=== PATIENT | male | born 1990 | race Caucasian/White ===

== ENCOUNTER 2016-10-05 02:11 | Inpatient (IN) | payer BC ==
[~2016-10-05] VITALS: Ht 182.9 cm; Wt 122.6 kg
--- NOTE | ~2016-10-05 | ECH ---
Transthoracic Echocardiography Report (TTE) Demographics Patient Name ANNAMARIE CRENSHAW Date of Study 10/10/2016 Patient Number [id number] Visit Number [id number] Date of 1990 Room Number 411 Accession Number [id number] Gender Male Age 26 year(s) Referring Rosi Chen MD Decaler Felicia Lind [facility] Physician Physician Herminio Galloway MD Commercial Lawn Specialist Physician Klever Supervising Ordering Physician Rosi Chen MD, MD/MLP Nurse Stress Horticulture Worker Conclusions Contractility Score Summary Normal Left Ventricular contractility was noted. Summary Technically difficult exam to perform due to recent left shoulder surgery. Apical images limited. The estimated left ventricular ejection fraction is 60-65%. Mild concentric left ventricular hypertrophy. No significant valvular abnormalities. Right ventricle was not well visualized. It appears mildly enlarged but systolic function could not be visualized. Recommendation The patient will be given the results of this study by the physician who ordered the exam. Procedure Type of Study TTE procedure:Echo Complete SF. Procedure Date Date: 10/10/2016 Start: 03:56 PM Technical Quality: Adequate visualization Indications:Dyspnea with exertion and Pulmonary embolus. Appropriate Use Criteria: 9 Height: 72 inches Weight: 275 pounds BSA: 2.44 m Rhythm: Within normal limits HR: 69 bpm BP: 144/60 mmHg M-Mode/2D Measurements LV Diastolic Dimension: 4.08 cm LV Systolic Dimension: 2.27 cm LV Septum Diastolic: 1.09 cm LV PW Diastolic: 1.06 cm AO Root Dimension: 2.41 cm Cardiac Output: 5.62 l/min LA Dimension: 3.56 cm Cardiac Index: 2.3 l/min*m RV Diastolic Dimension: 3.29 cm LA volume index: 14 ml/m LVOT: 1.99 cm LVOT VTI: 26.18 cm LV Stroke volume: 81.39 ml LV Stroke volume index: 33.36 ml/m Doppler Measurements AV Mean Gradient: 3.49 mmHg MV Peak E-Wave: 0.84 m/s LVOT Peak Velocity: 1.22 m/s MV Peak A-Wave: 0.45 m/s AV Area (Continuity):3.35 cm MV P1/2t: 47.5 msec TR Velocity:1.17 m/s TR Gradient:5.51 mmHg MV Deceleration Time: 169.9 msec Estimated RAP:5 mmHg MV Area (PHT): 4.63 cm Estimated RVSP: 11 mmHg PV Peak Velocity: 1.12 m/s PV Peak Gradient: 5.06 mmHg Estimated PASP: 10.51 mmHg Findings Left Ventricle The left ventricle is normal in size . Mild concentric left ventricular hypertrophy. Diastolic assessment reveals normal relaxation. Right Ventricle Right ventricle not well visualized. Left Atrium Normal left atrial size. Right Atrium Right atrium not well visualized. Mitral Valve Normal mitral valve structure and function. Aortic Valve Normal aortic valve structure and function. Tricuspid Valve Normal tricuspid valve structure and function. Trivial tricuspid regurgitation by color Doppler. Pulmonic Valve Normal pulmonic valve structure and function. Pericardial Effusion No evidence of pericardial effusion. Miscellaneous Visualized portions of the aortic root and ascending aorta appear normal in size. Pleural Effusion No evidence of pleural effusion. Contractility Score LV regional wall motion:(0-Non visualized 1-Normal 2-Hypokinesis 3-Akinesis 4-Dyskinesis 5-Aneurysm) Signature
[2016-10-12] MEDS ORDERED: OXY IR DPS5 MG PO (10:25)
[2016-10-12] MEDS ORDERED: PEPCID DPS20 MG PO (10:25)
[2016-10-12] MEDS ORDERED: MAALOX DPS30 ML PO (10:26)
[2016-10-12] MEDS ORDERED: XARELTO15 MG PO (10:26)
[2016-10-12] MEDS ORDERED: CIPRO DPS500 MG PO (10:26)
[2016-10-12] MEDS ORDERED: MILK OF MAGNESI10 ML PO (10:27)
[2016-10-12] MEDS ORDERED: SURFAK DPS240 MG PO (10:27)
[2016-10-12] MEDS ORDERED: TYLENOL DPS325 MG PO (10:27)
[2016-10-12] MEDS ORDERED: MIRALAX PACKET17 GM PO (10:27)
--- NOTE | 2016-10-13 15:02 | CO ---
ADMIT: 10/05/2016 RM/LOC: 411 [facility] MR#: [id number] 26[address] [facility] [address] [place], [place] [address] ANNAMARIE CRENSHAW [address] [place] [address] Consultation SEX: M AGE: 26 : 1990 DATE OF CONSULTATION: 10/10/2016 ATTENDING PHYSICIAN: Dimitry Aranda CONSULTING PHYSICIAN: Yessy Whalen MD REASON FOR CONSULT: Fever. Thank you, Dr. Aranda, for the consult and involving me in this patient's care. 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 He recently underwent a left labrum repair by Dr. Flor in [place] on September 28, 2016. Subsequently 1 week after that, he noticed severe pain in his left upper extremity and went to [place] ER and was noted to have deep vein thrombosis. He was started on Xarelto and discharged from the ER. He presented to [facility] and was noted to have right lower lobar and segmental pulmonary embolus. He was started on heparin drip. Since admission, he has been running fevers. T-max was 101.9 on admission. He was started on Zosyn and blood cultures have been negative so far. Left shoulder MRI was also done without contrast, which only showed small amount of fluid in the subacromial and subdeltoid bursa. At present, he complains of mild back pain on deep breathing and left shoulder discomfort. He had a fever of 101.9 and then was started on Zosyn. PAST MEDICAL HISTORY: Obesity. SOCIAL HISTORY: Denies any smoking or recreational drug use. He drinks alcohol 2-3 times a week. He lives at home with his . FAMILY HISTORY: Significant for stroke in his grandmother. REVIEW OF SYSTEMS: A 10-point review of systems negative except as mentioned in the HPI. PHYSICAL EXAMINATION: VITAL SIGNS: Current temperature 99, T-max 101.9 on admission, heart rate 70, respirations 14, blood pressure 127/65, and 93% on 2 L. GENERAL: No acute distress. HEENT. Head normocephalic and atraumatic. Extraocular movements intact. CHEST: Decreased breath sounds bilaterally. CARDIOVASCULAR: S1 and S2 heard. Regular rate and rhythm. ABDOMEN: Soft, nontender, and nondistended. Active bowel sounds. MUSCULOSKELETAL: The left shoulder Steri-strips are intact. Mild tenderness to palpation. No obvious erythema or swelling noted. PSYCH: Normal affect. Memory intact. ADMIT: 10/05/2016 RM/LOC: 411 [facility] MR#: [id number] [address] [address] ANNAMARIE CRENSHAW [address] [place] [address] Consultation SEX: M AGE: 26 : 1990 EXTREMITIES: No peripheral edema. DATA REVIEW: Per HPI. CBC shows white count of 6.3, hemoglobin 12.4, and platelets of 226. CMP shows creatinine of 1 and mildly elevated ALT of 83. ESR was elevated to 76. ASSESSMENT AND PLAN: 1. Fever, likely secondary to clot burden versus drug fever. There are no localizing signs of infection at this time. I will stop the Zosyn and change to ciprofloxacin 400 mg twice daily in case he has fever secondary to beta lactams. He is clinically stable. If he continues to have fever, then we will repeat MRI of the left shoulder with contrast and CT of abdomen and pelvis as well. He also had atelectasis on the right lower lobe and recommend doing incentive spirometry every 1 hour while awake. 2. Status post left shoulder tendon repair on September 28, 2016. 3. Left arm deep venous thrombosis. 4. Pulmonary embolus, on heparin drip. He was started on Xarelto again. Thank you for the consult. I will continue to follow the patient. Yessy Whalen MD/ justin JOB #: [id number] CC: Dimitry Aranda, Attending Physician Dimitry Aranda, Family Physician
--- NOTE | 2016-10-14 07:29 | ER ---
ADMIT: 10/05/2016 RM/LOC: ER [facility] MR#: [id number] 26[address] [facility] [address] [place], [place] [address] ANNAMARIE CRENSHAW [address] [place] [address] Emergency Room Report SEX: M AGE: 26 : 1990 DATE: 10/05/2016 CHIEF COMPLAINT: Concern of possible PE. HISTORY OF PRESENT ILLNESS: The patient is a 26-year-old male, who had surgery on his left shoulder a week ago. The surgery was done in [place] by Dr. Flor. The patient states that he has had pain associated with surgery, but had increasing pain in the last 24 hours in the left arm and shoulder. He presented to an outside facility to the emergency department, where he was worked up, possible DVT, and they found a DVT in his left upper extremity. Decision was made to put him on Xarelto and he was discharged home on Xarelto. Since being discharged and taking his first dose of Xarelto, he states he has had increasing symptoms of some pain, primarily in his left scapular region, some pain with inspiration and increasing shortness of breath. He still has the persistent pain in his left shoulder and left upper extremity. REVIEW OF SYSTEMS: Ten-point review of systems is done, otherwise negative except as in HPI. PAST MEDICAL HISTORY: Unremarkable. MEDICATIONS: See nurse's note. ALLERGIES: NONE. SOCIAL HISTORY: Denies smoking, drug, or alcohol use. PHYSICAL EXAMINATION: VITAL SIGNS: Blood pressure is 102/78, pulse 98, respirations 26, temp 99.7, sats 100% on room air. GENERAL: The patient does appear uncomfortable and is anxious. He is alert, airway is patent. NECK: Supple. HEART: Regular rate and rhythm. LUNGS: Clear to auscultation. EXTREMITIES: Right upper extremity is unremarkable. Left upper extremity shows he is in a sling. He has some operative sites noted on his left shoulder, which appear that they are healing well. No signs of infection. He has good radial pulse and sensation and motor are grossly intact in the left upper extremity. ABDOMEN: Soft. Lower extremities show he has no pedal edema. No calf tenderness. LABORATORY DATA: CBC was unremarkable. BMP was unremarkable. ABG on room air showed a pH 7.4, pCO2 of 33.6, PO2 of 63. CT angio of the chest was done, which was a suboptimal contrast study, which shows: 1. No evidence of acute intrathoracic disease. 2. There is some mild bibasilar dependent atelectasis. 3. Suboptimal contrast opacification of the pulmonary arteries. Unable to ADMIT: 10/05/2016 RM/LOC: ER [facility] MR#: [id number] [address] [address] ANNAMARIE CRENSHAW [address] [place] [address] Emergency Room Report SEX: M AGE: 26 : 1990 evaluate for pulmonary emboli. EMERGENCY DEPARTMENT COURSE: When the patient presented, he was quite anxious. We went ahead and got an IV started and we ordered some Dilaudid and Ativan for his pain and anxiety. His symptoms were improved with regard to his pain. The workup for possible PE was inconclusive due to the timing of the dye on his CT angio. Clinically, I am still concerned of pulmonary embolism. His ABG was low on room air. When we got the patient up to walk, his sats dropped to 90 and he was symptomatic and dyspneic. At this point, we will be admitting the patient for possibility of PE and we will be starting on heparin. I spoke to Dr. Jones, who is on this evening for the patient's primary care physician. DIAGNOSES: 1. Chest pain. 2. Deep vein thrombosis, left upper extremity. 3. Dyspnea. 4. Postoperative pain. 5. Possible pulmonary embolism. Sergio Anders MD/ justin JOB #: [id number] CC: Sergio Anders MD, Attending Physician Dimitry Aranda DO, Family Physician
--- NOTE | 2016-10-18 08:23 | HP ---
ADMIT: 10/05/2016 RM/LOC: 411 [facility] MR#: [id number] 26[address] [facility] [address] [place] [id number] ANNAMARIE CRENSHAW [address] [place] [address] History and Physical SEX: M AGE: 26 : 1990 DATE OF SERVICE: 10/05/2016 REASON FOR HOSPITALIZATION: DVT and high index suspicion for PE. 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 Flor in [place] with subsequent finding of a DVT after he presented to the [place] [facility] with left upper extremity pain and sharp, stabbing discomfort in the arm. He was started on Xarelto and released. He then developed dyspnea and right posterior mid-chest stabbing pain with low oximetry levels. He came to the emergency room and underwent CTA, which was equivocal and non-diagnostic. We have subsequently admitted him for treatment of DVT with high index suspicion pulmonary embolism. Since his admission, he has been spiking some low-grade temperatures. He continues to complain of the right-sided chest discomfort. He is taking no medicines other than IV heparin at this time, but had been started on Xarelto 15 mg b.i.d. and was on pain management of Advil, Nucynta, and oxycodone after his surgery. SOCIAL HISTORY: He does not smoke. He is . FAMILY HISTORY: Negative for DVT or pulmonary embolism. REVIEW OF SYSTEMS: Essentially as outlined above. He denies any nausea, vomiting, diarrhea, constipation, or bleeding. PHYSICAL EXAMINATION: On exam, he has a low-grade temp, his temperature current is 101.2. His shoulders do not show any signs of infection. His incisions are healing nicely, no drainage. He has a few rhonchi, especially in right posterior mid-lung field. His left upper extremity has good pulses and is warm. LABORATORY DATA: His creatinine is 1.1, white count 9.6. IMAGING: CTA nondiagnostic, no major central vascular occlusions. ADMIT: 10/05/2016 RM/LOC: 411 [facility] MR#: [id number] 26[address] [facility] [address] [place] [id number] ANNAMARIE CRENSHAW [address] [place], [place] [address] History and Physical SEX: M AGE: 26 : 1990 IMPRESSION: 1. Deep vein thrombosis with high index suspicion for pulmonary embolism. 2. Fever, possibly related to clot and/or atelectasis. I do not see any signs of wound or surgical infection, and he is not having any urinary symptoms. PLAN: We are going to admit him, heparinize him over the next 48 hours. Hold his Xarelto. Plan to repeat a CTA in 48 hours, and I suspect we will see some changes by that time, if possible more peripheral pulmonary infarct. For the temperatures, we will culture and cover with antibiotic therapy. We will provide him pain relief and monitoring on telemetry. Dimitry Aranda DO/ justin JOB #: [id number] CC: Dimitry Aranda, Attending Physician Dimitry Aranda, Family Physician
--- NOTE | 2016-11-08 08:20 | DS ---
ADMIT: 10/05/2016 RM/LOC: 411 [facility] MR#: [id number] [address] [facility] [address] [place] [phone] ANNAMARIE CRENSHAW [address] [place] [address] Discharge Summary SEX: M AGE: 26 : 1990 ADMISSION DATE: 10/05/2016 DISCHARGE DATE: 10/11/2016 REASON FOR HOSPITALIZATION: DVT with high index suspicion for pulmonary embolism. HISTORY OF PRESENT ILLNESS: A 26-year-old male patient, recently underwent left labrum shoulder repair by Dr. Flor. He was subsequently found to have a DVT in his left upper extremity in [facility] where he was treated and placed on Xarelto and released. He had subsequently developed shortness of breath and right posterior mid chest pain, stabbing in nature. He then presented to the [facility] where CTA was performed and initially nonconclusive, but presumably underlying pulmonary infarct/pulmonary embolism. At the time of presentation, he was febrile and we started him on IV heparin, put him at bed rest, underwent blood culture, started him on broad- spectrum antibiotic therapy consisting of Zosyn. He was also started on a Dilaudid ENTOMOLOGY PROFESSOR for pain management. We spent a great deal of time educating the patient and family about the nature of pulmonary embolism and DVT as well as a long-term management. We did have him undergo a followup MRI of his left shoulder and within 48 hours, we approved of him being up and about being off a telemetry to shower and because of the narcotic analgesics, he was constipated, so I recommended he start on Movantik 25 mg p.o. daily. CAT scan did show pulmonary embolism. This is found in the right lower lobe consistent with his pain and discomfort. His blood cultures were negative. Factor V Leiden was performed. We felt that his DVT and pulmonary embolism were provoked by recent upper extremity immobilization and clot found in the upper extremity. He was otherwise at relatively low risk once stabilized with his pulmonary embolism. We opted to put him on Xarelto 15 mg p.o. b.i.d. for 21 days and then transitioned him to 20 mg p.o. daily thereafter. Because he had ongoing fever, we did ask Dr. Whalen to see and performed an echocardiogram. We transitioned him from ENTOMOLOGY PROFESSOR pain management to oral pain management. Dr. Whalen felt that his fever was likely secondary to clot burden and atelectasis. She found no localizing signs of infection and recommended incentive spirometry and discontinuation of IV Zosyn and institution of IV ciprofloxacin. On 10/11/2016, he was having some abdominal discomfort, so we had him undergo an ultrasound of the abdomen. This showed no evidence of acute cholecystitis and he was appropriate for dismissal home. He was to return to ADMIT: 10/05/2016 RM/LOC: 411 [facility] MR#: [id number] [address] [address] ANNAMARIE CRENSHAW [address] [place] [address] Discharge Summary SEX: M AGE: 26 : 1990 see me in 2 weeks. He was to continue Cipro 500 mg p.o. b.i.d. through October 13, 2016 and have repeat liver enzymes performed one week after dismissal at our office. Ultimately, Dr. Whalen concluded that his fevers were probably medication induced and also his elevated liver enzymes were suspicious that they were medication and antibiotic induced. FINAL DIAGNOSES: 1. Deep venous thrombosis. 2. Pulmonary embolism. 3. Medication/antibiotic-induced fever. 4. Constipation. 5. Elevated liver enzymes secondary to medication management. Dimitry Aranda DO/ modl JOB #: [id number] CC: Dimitry Aranda DO, Attending Physician Dimitry Aranda DO, Family Physician
== END 2016-10-11 11:20 | disposition home or self-care (01) | DRG 176 ==
LOC: ER 02:11 → 4PCU 04:40
PROVIDERS: ADMIT Internal Medicine
DX: I26.99 Other pulmonary embolism without acute cor pulmonale (principal); I82.622 Acute embolism and thrombosis of deep veins of left upper extremity; J98.11 Atelectasis; F41.9 Anxiety disorder, unspecified; R50.9 Fever, unspecified; Z98.890 Other specified postprocedural states; E66.9 Obesity, unspecified; K59.00 Constipation, unspecified; R79.89 Other specified abnormal findings of blood chemistry; T50.905A Adverse effect of unspecified drugs, medicaments and biological substances, initial encounter; Z68.37 Body mass index [BMI] 37.0-37.9, adult

== ENCOUNTER → 2016-10-12 | Outpatient (CLI) | payer BC ==
[~2016-10-12] MED LIST: CIPRO DPS500 MG PO; MAALOX DPS30 ML PO; MILK OF MAGNESI10 ML PO; MIRALAX PACKET17 GM PO; OXY IR DPS5 MG PO; PEPCID DPS20 MG PO; SURFAK DPS240 MG PO; TYLENOL DPS325 MG PO; XARELTO15 MG PO
== END | disposition home or self-care (01) ==
LOC: RAD.S 10:43
DX: R79.89 Other specified abnormal findings of blood chemistry (principal); I82.409 Acute embolism and thrombosis of unspecified deep veins of unspecified lower extremity; I26.99 Other pulmonary embolism without acute cor pulmonale

== ENCOUNTER → 2016-11-03 | Outpatient (CLI) | payer BC | END | disposition home or self-care (01) | LOC: PTH.S 14:37 | DX: M54.9 Dorsalgia, unspecified (principal); R79.89 Other specified abnormal findings of blood chemistry; Z86.711 Personal history of pulmonary embolism ==